=== PATIENT | female | born 1925 | race Caucasian/White ===

== ENCOUNTER → 2016-11-14 | Day surgery (SDC) | payer MEDICARE, OTHER ==
[~2016-11-14] MED LIST: Barium Sulfate 105% w/v Susp 1,900 ML Bottle RECTAL ONE; Propofol 200 MG/20 ML SDV ONE; Sodium Chloride 0.9% 1,000 ML IV SCH; fentaNYL 100 MCG/2 ML SDV ONE
--- NOTE | 2016-11-14 14:05 | CR ---
Single contrast barium enema Thin barium was administered retrograde into the colon. The colon demonstrates normal distensibility . There is redundancy of the sigmoid region. There are no areas of stricture. No mucosal polyps are seen. There is reflux into a normal-appearing appendix as well as terminal ileum. There are no diver ticula. Impression: 1. Negative single contrast barium enema.
[2016-11-14 14:53] VITALS: BP 163/83
--- NOTE | 2016-11-15 09:05 | PROC ---
DATE OF PROCEDURE: 11/14/2016 PROCEDURE I: Esophageal gastroduodenoscopy. This is being done because of GI blood loss, anemia down to 8.5, and positive stools for occult blood. The risks and benefits were explained to the patient for an esophageal gastroduodenoscopy. PROCEDURE IN DETAIL: Anesthesia was given by the nurse finance clerk. The Olympus 180 endoscope was used and placed into the pharynx and the esophagus without difficulty and advanced under direct vision. We got into the stomach which revealed significant gastric erythema with ulcers that are evident. The tube was advanced through the first and second part of the duodenum. Upon retraction of the tube, noted no lesions or ulceration or abnormality in the duodenum. Stomach revealed the ulcers and gastric erythema. Biopsy was done for Helicobacter pylori and for cytology. Air was withdrawn from the stomach, and there was no bleeding noted subsequently after the biopsy. The tube was totally retracted through the esophagus and no obvious pathology noted. The vocal cords move symmetrically. No obvious pathology noted and the tube was removed. The patient tolerated the procedure well. PREOPERATIVE DIAGNOSIS: GI blood loss. POSTOPERATIVE DIAGNOSIS: Gastric ulcerations with gastric erythema. Biopsies pending for cytology and Helicobacter pylori. PROCEDURE II: Colonoscopy: PROCEDURE IN DETAIL: Colonoscopy is being done because of GI blood loss and anemia down to 8.5 hemoglobin. She also had stools positive for blood. The risks and benefits were explained to the patient, and she was taken the OR, anesthesia given by nurse finance clerk. During the procedure, a total of 100 mcg of fentanyl was used and 200 mg of propofol. The Olympus 180 AL scope, was placed into the rectum and passed under direct vision. We did get to 40 cm, unable to advance further. The patient was placed on her back and still was unable to advance further beyond 40 cm. This tube was slowly retracted, no obvious pathology noted, and the tube was removed. The patient tolerated the procedure well. PREOPERATIVE DIAGNOSIS: Anemia and GI blood loss. POSTOPERATIVE DIAGNOSIS: Failed colonoscopy. She will have a air contrast lower GI today. I will follow through with her in the office. Seth Calero MD /[id number]
== END ==
LOC: JP.SDS 09:41
PROVIDERS: ATTEND Internal Medicine
DX: K29.50 Unspecified chronic gastritis without bleeding (principal); K25.9 Gastric ulcer, unspecified as acute or chronic, without hemorrhage or perforation; D64.9 Anemia, unspecified; I11.0 Hypertensive heart disease with heart failure; I50.9 Heart failure, unspecified; K21.9 Gastro-esophageal reflux disease without esophagitis; M81.0 Age-related osteoporosis without current pathological fracture; E11.9 Type 2 diabetes mellitus without complications; Z79.899 Other long term (current) drug therapy
CPT/HCPCS: 43239; 45330; 74270; J2704; J3010; J7040; 88305